=== PATIENT | female | born 2000 | race African-American/Black ===

== ENCOUNTER 2023-12-14 21:23 | Emergency (ER) | payer OTHER ==
--- NOTE | 2023-12-14 23:26 | ED Physician Documentation ---
History of Present Illness - Stated complaint Stated Complaint: DIZZY/GARCIA - Chief complaint Chief Complaint: Heent - History obtained from History obtained from: Patient - Additonal information Additional information: 23yF p/w dizziness and headache X 2 days with BL temporal pain and photophobia. Patient denies other symptoms. PD PAST MEDICAL HISTORY - Past Medical History Past Medical History: No Cardiovascular: None Respiratory: None Neuro: None Endocrine/Autoimmune: None GI: None INTERNATIONAL MANAGER: None : None HEENT: None Psych: None Musculoskeletal: None Derm: None - Past Surgical History Past Surgical History: No - Present Medications Home Medications: Ambulatory Orders Medication Instructions Recorded Confirmed No Known Home Medications 12/14/23 12/14/23 - Allergies Allergies/Adverse Reactions: Allergies Allergy/AdvReac Type Severity Reaction Status Date / Time No Known Drug Allergies Allergy Verified 12/14/23 21:33 - Social History Does the pt smoke?: No Smoking Status: Never smoker Does the pt drink ETOH?: No Does the pt have substance abuse?: No - Immunizations Immunizations are current?: Yes - POLST Patient has POLST: No PD ED PE NORMAL - Vitals Vital signs reviewed: Yes - General General: Alert and oriented X 3, No acute distress, Well developed/nourished - HEENT HEENT: Atraumatic, PERRL, EOMI - Neck Neck: Supple, no meningeal sign - Cardiac Cardiac: RRR - Respiratory Respiratory: No respiratory distress, Clear bilaterally - Abdomen Abdomen: Non tender, Non distended Results - Vitals Vitals: Vital Signs - 24 hr 12/14/23 21:25 Temperature 37.1 C Heart Rate 66 Respiratory 17 Rate Blood Pressure 111/66 O2 Saturation 100 Oxygen O2 Source Room air PD Medical Decision Making - ED course ED course: 23yF p/w headache and dizzy spells for the past couple days. Patient is well appearing with benign exam and appearance. denies possibility of . plan to dc home to f/u with pcp routinely. return precautions given. Departure - Departure Disposition: Home, Self Care Clinical Impression: Viral illness Condition: Stable Instructions: ED Viral Syndrome Comments: You were seen in the emergency department for dizziness and headache. Please get lots of rest and stay well hydrated. Please follow-up with your primary care provider and return to the emergency department if you have any new or worsening symptoms or other concerns. Forms: PCP List
[2023-12-15] MEDS: KETOROLAC 10 MG TABLET PO STA (00:21)
[2023-12-15 00:34] VITALS: BP 122/68; O2SAT 98
== END 2023-12-15 00:30 | disposition home or self-care (01) ==
LOC: ED 21:23
DX: B34.9 Viral infection, unspecified (principal)
CPT/HCPCS: 99283; A9270